=== PATIENT | male | born 1975 | race Caucasian/White ===

== ENCOUNTER 2018-10-14 21:31 | Emergency (ER) | payer OTHER ==
[~2018-10-14] VITALS: Ht 172.7 cm; Wt 100.0 kg
[~2018-10-14 21:31] MED LIST: HTN MED
[2018-10-14 21:34] VITALS: BP 161/108
[2018-10-14] MEDS ORDERED: AMLO-511 PO (21:35)
== END 2018-10-14 23:00 | disposition left against medical advice (07) ==
LOC: EMS 21:32
DX: H92.02 Otalgia, left ear (principal); Z53.21 Procedure and treatment not carried out due to patient leaving prior to being seen by health care provider

== ENCOUNTER 2018-10-15 02:17 | Emergency (ER) | payer MEDICAID, OTHER ==
[~2018-10-15] VITALS: Ht 172.7 cm; Wt 100.0 kg
[~2018-10-15 02:17] MED LIST changes: +AMLO-511 PO; -HTN MED
[2018-10-15] MEDS ORDERED: AMOXICILLIN TRIHYDRATE 250 MG CAPSULE PO ONE (03:45)
[2018-10-15] MEDS ORDERED: HYDROCODONE/ACETAMINOPHEN 10-325 MG TABLET PO ONE (03:45)
[2018-10-15 04:07] VITALS: BP 180/110
== END 2018-10-15 05:12 | disposition left against medical advice (07) ==
LOC: EMS 02:19
DX: H92.02 Otalgia, left ear (principal); I10 Essential (primary) hypertension; Z76.0 Encounter for issue of repeat prescription

== ENCOUNTER 2018-11-10 22:33 | Emergency (ER) | payer MEDICAID ==
[~2018-11-10] VITALS: Ht 172.7 cm; Wt 100.0 kg
[2018-11-11] MEDS ORDERED: IBUPROFEN 600 MG TABLET PO ONE (02:15)
[2018-11-11] MEDS ORDERED: PredniSONE 20 MG TABLET PO ONE (02:15)
[2018-11-11] MEDS ORDERED: CLINDAMYCIN HCL 150 MG CAPSULE PO ONE (02:15)
[2018-11-11 02:35] VITALS: BP 128/87
== END 2018-11-11 02:52 | disposition home or self-care (01) ==
LOC: EMS 22:34
DX: L03.211 Cellulitis of face (principal); I10 Essential (primary) hypertension
CPT/HCPCS: 99284; J7512

== ENCOUNTER 2019-04-29 11:12 | Emergency (ER) | payer MEDICAID, OTHER ==
[~2019-04-29] VITALS: Ht 175.3 cm; Wt 102.3 kg
[~2019-04-29 11:12] MED LIST changes: -AMLO-511 PO; +AMLO5TAB9 PO
[2019-04-29] MEDS ORDERED: LEVO25TA9 PO (11:18)
[2019-04-29] MEDS ORDERED: LIDOCAINE 5% TRANSDERMAL PATCH TD ONE (12:15)
[2019-04-29 13:02] VITALS: BP 153/107
== END 2019-04-29 13:33 | disposition home or self-care (01) ==
LOC: EMS 11:13
DX: M54.5 Low back pain (principal); I10 Essential (primary) hypertension; E03.9 Hypothyroidism, unspecified; V49.9XXA Car occupant (driver) (passenger) injured in unspecified traffic accident, initial encounter; Y93.89 Activity, other specified; Y92.89 Other specified places as the place of occurrence of the external cause; Y99.8 Other external cause status
CPT/HCPCS: 72100

== ENCOUNTER 2019-09-01 16:17 | Emergency (ER) | payer OTHER ==
[~2019-09-01] VITALS: Ht 172.7 cm; Wt 97.7 kg
[~2019-09-01 16:17] MED LIST changes: +LEVO25TA9 PO
[2019-09-01 19:40] VITALS: BP 145/87
== END 2019-09-01 19:40 | disposition home or self-care (01) ==
LOC: EMS 16:17
DX: G56.03 Carpal tunnel syndrome, bilateral upper limbs (principal); J11.1 Influenza due to unidentified influenza virus with other respiratory manifestations; E03.9 Hypothyroidism, unspecified; I10 Essential (primary) hypertension; Z79.899 Other long term (current) drug therapy

== ENCOUNTER 2023-02-11 02:46 | Emergency (ER) | payer OTHER ==
[~2023-02-11] VITALS: Ht 172.7 cm; Wt 98.8 kg
[~2023-02-11 02:46] MED LIST changes: +AMLO-257 PO; -AMLO5TAB9 PO
[2023-02-11 02:54] VITALS: TEMP 98.3
[2023-02-11 03:22] LABS: BASOPHILS % (AUTO) 0.9 % (0.0-2.0); EOSINOPHILS % (AUTO) 0.5 % (1.0-6.0); HEMATOCRIT 42.6 % (41-53); HEMOGLOBIN 14.8 g/dL (13.5-17.5); LYMPHOCYTES % (AUTO) 22.7 % (22.0-44.0); MEAN CORPUSCULAR HEMOGLOBIN 34.1 pg (26.0-34.0); MEAN CORPUSCULAR HGB CONC 34.7 G/dL (31.0-37.0); MEAN CORPUSCULAR VOLUME 98 fL (80-100); MONOCYTES # (AUTO) 0.4 K/uL (0.1-1.0); MONOCYTES % (AUTO) 9.9 % (2.0-9.0); NEUTROPHILS # (AUTO) 2.8 K/uL (1.8-7.7); PLATELET COUNT (AUTO) 243 K/uL (150-450); RED BLOOD CELL COUNT(AUTO) 4.34 MIL/uL (4.50-5.90); RED CELL DISTRIBUTION WIDTH 13.8 % (11.5-14.5)
[2023-02-11] MEDS ORDERED: CloNIDine HCL 0.2 MG TABLET PO ONE (03:30)
[2023-02-11 03:32] LABS: ANION GAP 11 mmol/L (8-16); CALCIUM, TOTAL 8.6 mg/dL (8.8-10.5); CARBON DIOXIDE 25 mmol/L (22-29); CHLORIDE 104 mmol/L (98-107); CREATININE 0.84 mg/dL (0.60-1.30); GLOMERULAR FILTR. RATE CALC > 60 mL/min (>60); GLUCOSE,RANDOM 104 mg/dL (70-110); POTASSIUM 3.4 mmol/L (3.5-5.1); SODIUM SERUM 140 mmol/L (136-145)
[2023-02-11 03:40] LABS: ALANINE AMINOTRANSFERASE 33 U/L (12-78); ALBUMIN 4.3 g/dL (3.4-5.0); ALKALINE PHOSPHATASE 58 U/L (46-116); ASPARTATE AMINOTRANSFERASE 24 U/L (15-37); BILIRUBIN,TOTAL 0.7 mg/dL (0.1-1.0); CREATINE KINASE, TOTAL ONLY 395 U/L (39-308); TOTAL PROTEIN, SERUM 7.5 g/dL (6.4-8.2)
[2023-02-11 03:42] LABS: B-TYPE NATRIURETIC PEPTIDE 7 pg/mL (0-100)
[2023-02-11] MEDS ORDERED: CloNIDine HCL 0.1 MG TABLET PO ONE (03:45)
[2023-02-11 05:53] VITALS: BP 140/89; PULSE 85; RESP 20
[2023-02-11] MEDS ORDERED: KETOROLAC TROMETHAMINE 30 MG/ML VIAL IVP ONE (06:00)
== END 2023-02-11 06:05 | disposition home or self-care (01) ==
LOC: EMS 02:46
DX: R10.11 Right upper quadrant pain (principal); I10 Essential (primary) hypertension; R07.89 Other chest pain; E11.9 Type 2 diabetes mellitus without complications; J40 Bronchitis, not specified as acute or chronic; E03.9 Hypothyroidism, unspecified
CPT/HCPCS: 99285; 96374; 76700; 71045; 80053; 82550; 83690; 83880; 84484; 85025; 93005; J1885

== ENCOUNTER 2023-03-22 14:57 | Emergency (ER) | payer OTHER ==
[~2023-03-22] VITALS: Ht 175.3 cm; Wt 79.5 kg
[2023-03-22 15:00] VITALS: TEMP 99
[2023-03-22] MEDS ORDERED: KETOROLAC TROMETHAMINE 60 MG/2 ML VIAL IM ONE (16:30)
[2023-03-22] MEDS ORDERED: CefTRIAXone SODIUM 1 GM/VIAL IM ONE (16:30)
[2023-03-22] MEDS ORDERED: LIDOCAINE/PF 1% 2 ML VIAL IM ONE (16:30)
[2023-03-22 17:12] LABS: COVID AG,FIA SOURCE NASOPHARYNGEAL
[2023-03-22] MEDS ORDERED: PENI500T2 PO (17:59)
[2023-03-22 18:16] VITALS: BP 146/88; PULSE 70; RESP 16
== END 2023-03-22 18:27 | disposition home or self-care (01) ==
LOC: EMS 15:17
DX: J02.9 Acute pharyngitis, unspecified (principal); I10 Essential (primary) hypertension; E03.9 Hypothyroidism, unspecified; Z20.822 Contact with and (suspected) exposure to COVID-19
CPT/HCPCS: 99284; 87426; 87430; 96372; J0696; J1885; J3490

== ENCOUNTER 2023-04-28 07:21 | Emergency (ER) | payer OTHER ==
[~2023-04-28] VITALS: Ht 172.7 cm; Wt 97.7 kg
[~2023-04-28 07:21] MED LIST changes: +PENI500T2 PO
[2023-04-28 07:51] LABS: BASOPHILS % (AUTO) 0.8 % (0.0-2.0); EOSINOPHILS % (AUTO) 1.5 % (1.0-6.0); HEMATOCRIT 40.3 % (41-53); HEMOGLOBIN 13.8 g/dL (13.5-17.5); LYMPHOCYTES # (AUTO) 1.2 K/uL (1.0-4.8); LYMPHOCYTES % (AUTO) 20.7 % (22.0-44.0); MEAN CORPUSCULAR HGB CONC 34.3 G/dL (31.0-37.0); MEAN CORPUSCULAR VOLUME 99 fL (80-100); MONOCYTES # (AUTO) 0.6 K/uL (0.1-1.0); MONOCYTES % (AUTO) 10.1 % (2.0-9.0); NEUTROPHILS # (AUTO) 3.8 K/uL (1.8-7.7); NEUTROPHILS % (AUTO) 66.9 % (40.0-70.0); PLATELET COUNT (AUTO) 254 K/uL (150-450); RED BLOOD CELL COUNT(AUTO) 4.06 MIL/uL (4.50-5.90); WHITE BLOOD COUNT (AUTO) 5.7 K/uL (4.5-11.0)
[2023-04-28 07:51] LABS: COVID AG,FIA SOURCE NASAL SWAB
[2023-04-28 08:02] LABS: ANION GAP 9 mmol/L (8-16); CALCIUM, TOTAL 8.4 mg/dL (8.8-10.5); CARBON DIOXIDE 26 mmol/L (22-29); CHLORIDE 104 mmol/L (98-107); CREATININE 0.89 mg/dL (0.60-1.30); GLOMERULAR FILTR. RATE CALC > 60 mL/min (>60); GLUCOSE,RANDOM 135 mg/dL (70-110); POTASSIUM 3.3 mmol/L (3.5-5.1); SODIUM SERUM 138 mmol/L (136-145); UREA NITROGEN, BLOOD 21 mg/dL (7-18)
[2023-04-28 08:08] LABS: ALANINE AMINOTRANSFERASE 44 U/L (12-78); ALBUMIN 4.1 g/dL (3.4-5.0); ALKALINE PHOSPHATASE 64 U/L (46-116); ASPARTATE AMINOTRANSFERASE 45 U/L (15-37); BILIRUBIN,TOTAL 0.8 mg/dL (0.1-1.0); LIPASE 58 U/L (16-77); TOTAL PROTEIN, SERUM 7.4 g/dL (6.4-8.2)
[2023-04-28 08:14] LABS: INFLUENZA TYPE A NEGATIVE FOR TYPE A (NEGATIVE); INFLUENZA TYPE B NEGATIVE FOR TYPE B (NEGATIVE)
[2023-04-28 08:15] LABS: SARS-COV2 (COVID) ANTIGEN,FIA Negative (Negative)
[2023-04-28 08:32] LABS: TROPONIN I-HIGH SENSITIVITY 6 ng/L (<76)
[2023-04-28 10:29] LABS: APPEARANCE,URINE CLEAR (CLEAR); BILIRUBIN,URINE NEGATIVE (NEGATIVE); COLOR,URINE YELLOW (YELLOW); GLUCOSE, URINE (UA) NEGATIVE (NEGATIVE); KETONES,URINE NEGATIVE (NEGATIVE); LEUKOCYTE ESTERASE ,URINE NEGATIVE (NEGATIVE); NITRATE,URINE NEGATIVE (NEGATIVE); OCCULT BLOOD,URINE NEGATIVE (NEGATIVE); PROTEIN,URINE TRACE mg/dL (NEGATIVE); SPECIFIC GRAVITIY, URINE 1.029 (1.003-1.030)
[2023-04-28] MEDS ORDERED: KETOROLAC TROMETHAMINE 60 MG/2 ML VIAL IM ONE (11:30)
[2023-04-28 11:41] VITALS: BP 138/78; PULSE 68; RESP 17; TEMP 98.1
== END 2023-04-28 12:39 | disposition home or self-care (01) ==
LOC: EMS 07:29
DX: R07.89 Other chest pain (principal); M54.9 Dorsalgia, unspecified; I10 Essential (primary) hypertension; E03.9 Hypothyroidism, unspecified; Z20.822 Contact with and (suspected) exposure to COVID-19
CPT/HCPCS: 99285; 71045; 87426; 80053; 81003; 83690; 84484; 85025; 87804; 36415; 93005; 96372; J1885